=== PATIENT | female | born 2005 | race Caucasian/White ===

== ENCOUNTER 2025-05-30 16:25 | Emergency (ER) | payer OTHER ==
[~2025-05-30] VITALS: Ht 175.3 cm; Wt 69.9 kg
[2025-05-30] MEDS: ACETAMINOPHEN 325 MG TAB PO ONE (16:50)
[2025-05-30] MEDS: IBUPROFEN 600 MG TAB PO ONE (19:29)
[2025-05-30 20:05] LABS: MONO SCRN NEGATIVE (NEGATIVE)
[2025-05-30] MEDS ORDERED: AMOX500C PO (20:25)
[2025-05-30 20:26] VITALS: BP 98/62; TEMP 98.7; O2SAT 98
== END 2025-05-30 20:31 | disposition home or self-care (01) ==
LOC: M ED 16:25
DX: J03.90 Acute tonsillitis, unspecified (principal); Z79.2 Long term (current) use of antibiotics